=== PATIENT | female | born 1940 | race Caucasian/White ===

== ENCOUNTER 2023-09-22 06:10 | Day surgery (SDC) | payer MEDICARE, OTHER ==
[~2023-09-22] VITALS: Ht 154.9 cm; Wt 53.6 kg
[~2023-09-22 06:10] MED LIST: HYDROCODON-ACE1 EA10 PO; ROSUVASTATIN CAL5 MG PO; VALTREX500 MG PO
[2023-09-22 06:43] VITALS: BP 140/76
[2023-09-22] MEDS ORDERED: ALPRAZOLAM0.5 MG PO (06:44)
[2023-09-22 07:08] LABS: BASOPHILS 1.2 % (0-2); EOSINOPHILS 2.1 % (0-6); HEMATOCRIT 41.6 % (35.0-50.0); HEMOGLOBIN 14.3 g/dL (12.0-18.0); LYMPHOCYTES 32.4 % (24-44); MCH 32.2 (27-36); MCHC 34.5 g/dl (30-36); MCV 93.4 fl (81-99); NEUTROPHILS 53.3 % (39-80); PLATELET COUNT 176 K/uL (140-440); RBC 4.45 M/ul (4.3-5.7); RDW 12.8 (10.5-15.0)
[2023-09-22 07:16] LABS: BUN/CREATININE RATIO 14.28 (6.0-28.6); CALCIUM 9.9 mg/dL (8.5-10.1); CREATININE, SERUM 0.84 mg/dL (0.55-1.02)
--- NOTE | 2023-09-22 07:56 | NUR ---
DS ROUNDS. PT DEMONSTRATED LOW LEVEL OF ANXIETY; CONSENTED TO PRAYER. PROVIDED SUPPORTIVE PRESENCE; PROVIDED PRAYER. NO FOLLOW UP REQUIRED AT THIS TIME.
[2023-09-22] MEDS ORDERED: ADULT LOW DOSE81 MG PO (08:26)
[2023-09-22] MEDS ORDERED: HYDROCODON-ACE1 EA10 PO (08:59)
--- NOTE | 2023-09-22 09:11 | NUR ---
09/22/23 0911 Louann Long 5634 PT ARRIVED TO PACU ON RA AND AWAKE AND TALKING TO RN. PT DENIES PAIN AND NAUSEA. PLAN OF CARE DISCUSSED. 0911 HOB INCREASED AND PT SIPPING WATER.
[2023-09-22 09:20] VITALS: BP 129/76
--- NOTE | 2023-09-22 16:38 | EKG ---
[facility] [address] [facility] [place], [place] [address] Signed Normal sinus rhythm Possible Left atrial enlargement Nonspecific T wave abnormality Abnormal ECG Confirmed by RACHAEL GROVES MD ([id number]) on 09/22/2023 4:38:39 PM Electronically Signed By: RACHAEL GROVES 09/22/23 1638 PATIENT NAME: CHRIS GRACE Electrocardiogram DATE OF : 42 PHYSICIAN: RACHAEL GROVES REPORT #: [id number] REPORT IS CONFIDENTIAL AND NOT TO BE RELEASED WITHOUT AUTHORIZATION
--- NOTE | 2023-09-25 16:13 | OR ---
[facility] [facility] [address] [place], [place] [address] Signed DATE OF OPERATION: 09/22/2023 SURGEON: Jagdeep Irving MD PREOPERATIVE DIAGNOSIS: Right middle trigger finger. POSTOPERATIVE DIAGNOSIS: Right middle trigger finger. PROCEDURE PERFORMED: Right middle trigger finger release. DANCE INSTRUCTOR: None. ANESTHESIA: Eva block. TOURNIQUET TIME: 9 minutes. BRIEF HISTORY: Chris is an 83-year-old female with painful locking in her finger, this was bothersome enough to her. She wished to proceed with surgery. Risks, benefits, and alternatives were discussed and she understands, wished to proceed. DESCRIPTION OF PROCEDURE: Once consent was obtained, she was taken to the operating room. After adequate anesthesia, she was left on the day surgery bed and table was brought in. After establishment of the eva block, the hand was prepped and draped in a standard sterile fashion. The flexor tendon sheath was approached through a 1 cm incision in the distal palmar crease, this was carried through skin and subcutaneous tissue. Under loupe magnification, the A1 janee was identified and dissected free of overlying soft tissue. It was then released using tenotomy scissors. The patient was then asked to move her fingers. She was able to fully flex and fully extend without any locking. There was no triggering. The wound was copiously irrigated with normal saline, closed with 3-0 nylon. It was then injected with 5 mL of 0.25% plain Marcaine. The wound was then dressed with bacitracin, Adaptic, 4x8's, and gauze. She tolerated the procedure well. All sponge, Electronically Signed By: JAGDEEP IRVING MD 09/22/23 1016 Electronically Signed By: JAGDEEP IRVING MD 09/26/23 0655 PATIENT NAME: CHRIS GRACE OPERATIVE REPORT DATE OF : 42 REPORT #: [id number] PHYSICIAN: JAGDEEP IRVING MD PCP: HAILEY COTTO MD REPORT IS CONFIDENTIAL AND NOT TO BE RELEASED WITHOUT AUTHORIZATION [facility] [address] [place] [id number] Signed needle, and instrument counts were correct. Jagdeep Irving MD BA/ELODIAL /[id number] Copies: ~ Electronically Signed By: JAGDEEP IRVING MD 09/22/23 1016 Electronically Signed By: JAGDEEP IRVING MD 09/26/23 0655 PATIENT NAME: CHRIS GRACE OPERATIVE REPORT DATE OF : 42 REPORT #: [id number] PHYSICIAN: JAGDEEP IRVING MD PCP: HAILEY COTTO MD REPORT IS CONFIDENTIAL AND NOT TO BE RELEASED WITHOUT AUTHORIZATION
== END 2023-09-22 09:38 | disposition home or self-care (01) ==
LOC: OPS 06:10 → DS 06:10 → OPS 09:38 → DS 09:45 → OPS 09:45
PROVIDERS: ATTEND Specialist
PROC: 0LN70ZZ Release Right Hand Tendon, Open Approach (ICD-10-PCS; principal; 2023-09-22 09:35)
DX: M65.331 Trigger finger, right middle finger (principal); E78.00 Pure hypercholesterolemia, unspecified
CPT/HCPCS: 01810; 36415; 80048; 85025; 93005; 93010; J0690; J1885; J2405; J2704; J7121